=== PATIENT | male | born 1970 | race African-American/Black ===

== ENCOUNTER 2022-03-22 15:43 | Emergency (ER) | payer OTHER ==
[~2022-03-22] VITALS: Ht 182.9 cm; Wt 68.2 kg
[2022-03-22 15:57] VITALS: BP 114/80
[2022-03-22 16:17] LABS: COVID AG,FIA SOURCE NASAL SWAB
== END 2022-03-22 17:03 | disposition home or self-care (01) ==
LOC: EMS 15:43
DX: Z20.822 Contact with and (suspected) exposure to COVID-19 (principal); E11.9 Type 2 diabetes mellitus without complications
CPT/HCPCS: 99283